=== PATIENT | female | born 1965 | race Two or more races ===

== ENCOUNTER → 2016-12-18 | Outpatient (CLI) | payer BC ==
[~2016-12-18] MED LIST: FERR325T PO; FLUO-125 PO; FOLI1TAB6 PO
[2016-12-18 14:35] LABS: Basophils # (auto) 0.1 uL; Basophils % (auto) 1.1 % (0.0-2.0); DEFINITIVE VIEW TRANSMISSION; Eosinophils # (auto) 0.1 uL; Eosinophils % (auto) 1.5 % (0.0-7.0); Hematocrit 37.5 % (36.0-46.0); Hemoglobin 11.2 g/dL (12.2-16.2); Lymphocytes # (auto) 1.4 uL; Lymphocytes % (auto) 24.2 % (10.0-50.0); Mean Corpuscular Hemoglobin 20.1 pg (28.0-32.0); Mean Platelet Volume 10.5 fL (7.4-10.4); Monocytes # (auto) 0.3 uL; Monocytes % (auto) 6.1 % (0.0-12.0); Neutrophils # (auto) 3.8 uL; Neutrophils % (auto) 67.1 % (37.0-80.0); Platelet Count (auto) 256 10^3/uL (140-450); Red Cell Distribution Width 15.9 % (11.6-16.0); White Blood Cell 5.6 10^3/uL (4.4-10.8)
[2016-12-18 14:37] LABS: BUN/Creatinine Ratio 24.2; Calcium 8.9 mg/dL (8.5-10.1); INR 1.02 (0.9-1.15); Partial Thromboplastin Time 28.1 sec (22.64-33.71); Potassium 4.4 mmol/L (3.5-5.1); Prothrombin Time 10.5 sec (9.37-12.3)
[2016-12-18 15:20] LABS: Urine Bilirubin Negative (Negative); Urine Blood TRACE /uL (Negative); Urine Color Yellow (Yellow); Urine Glucose Normal (Normal); Urine Ketone Negative (Negative); Urine Mucus FEW (None Seen); Urine Nitrite Negative (Negative); Urine RBC 3 /hpf (0 - 4); Urine Squamous Epithelial Cell FEW /hpf (<5); Urine Urobilinogen Normal (Negative)
[2016-12-18 16:42] LABS: Platelet Estimate Adequate
[2016-12-18 16:43] LABS: Burr Cells FEW; Hypochromia Marked; Microcytosis Marked; Ovalocytes FEW
[2016-12-18 16:44] LABS: Giant Platelets Few
== END | disposition home or self-care (01) ==
LOC: LAB 13:29
PROVIDERS: ATTEND Urology
DX: M79.89 Other specified soft tissue disorders (principal); N39.0 Urinary tract infection, site not specified; D53.8 Other specified nutritional anemias
CPT/HCPCS: 36415; 80048; 81001; 84702; 85025; 85610; 85730; 87086

== ENCOUNTER 2016-12-21 07:38 | Day surgery (SDC) | payer BC ==
[~2016-12-21] VITALS: Ht 165.1 cm; Wt 68.0 kg
[2016-12-21] MEDS ORDERED: ceFAZolin 1GM/50ML D5W 50 ML IV ONE (09:59)
[2016-12-21] MEDS ORDERED: MIDAZOLAM HCL 1MG/1ML-2 ML VIAL ONE (10:08)
[2016-12-21] MEDS ORDERED: fentaNYL CITRATE 100 MCG/2 ML VL ONE (10:08)
[2016-12-21] MEDS ORDERED: PROPOFOL 10 MG/ML 20 ML IV ONE (10:09)
[2016-12-21] MEDS ORDERED: DEXAMETHASONE SOD PHOS 10MG/1ML VIAL INJ ONE (10:09)
[2016-12-21] MEDS ORDERED: LIDOCAINE 2% JELLY 11ml (GLYDO) ONE (10:11)
[2016-12-21] MEDS ORDERED: METHYLENE BLUE 1% 1 ML VIAL IV ONE (10:11)
[2016-12-21] MEDS ORDERED: KETOROLAC TROMETH 30 MG/ML 1ML VIAL IV ONE (11:00)
[2016-12-21] MEDS ORDERED: HYDROmorphone HCL 2 MG/ML VL IV PRN (11:00)
[2016-12-21] MEDS ORDERED: MIDAZOLAM HCL 1MG/1ML-2 ML VIAL IV PRN (11:00)
[2016-12-21] MEDS ORDERED: ePHEDrine SULFATE 50 MG/ML AMP IV PRN (11:00)
[2016-12-21] MEDS ORDERED: ONDANSETRON HCL 4 MG/2 ML VIAL IV ONE (11:00)
[2016-12-21] MEDS ORDERED: MORPHINE SULF INJ 2 MG/ML SYRINGE 1ML IV PRN (11:00)
[2016-12-21 11:44] VITALS: BP 116/63
== END 2016-12-21 11:44 | disposition home or self-care (01) ==
LOC: SUR 07:38
PROVIDERS: ATTEND Urology
DX: N35.9 Urethral stricture, unspecified (principal); D64.9 Anemia, unspecified; F32.9 Major depressive disorder, single episode, unspecified
CPT/HCPCS: 52281; J0690; J1100; J2250; J2704; J3010; J7030